=== PATIENT | male | born 1995 | race African-American/Black ===

== ENCOUNTER 2020-11-28 21:38 | Emergency (ER) | payer OTHER ==
[~2020-11-28] VITALS: Ht 188 cm; Wt 102.1 kg
--- NOTE | ~2020-11-28 | EMS ---
[place] [address] EMS Patient Care Report Name: ORLY THOMPSON Room #: REG KASI Sorto#: [id number] Admission: 11/28/20 Attend Phys: Discharge: Date of : [birth year] Report #: [id number] THIS REPORT FOR: //name// Report Transmitted: 11/28/2020 21:45 EMS Care Summary [place], [place]/[facility] Incident [id number] @ 11/28/2020 21:02 Incident Location [address] [place] [address] Patient ORLY THOMPSON Male, 25 Years 1995 Patient Address [address] [place] [address] Patient History None Reported, Patient Allergies No known allergies, Patient Medications None Reported, Chief Complaint Laceration to the knee and pinky Disposition Transported No Lights/[place] Dis[place] Reason Traumatic Injury Transported To [facility] Narrative Called for a traumatic injury. Upon arrival, P28 on the scene. Pt walked through a plate glass window accidentally. It was [place] [address] EMS Patient Care Report Name: ORLY THOMPSON Room #: REG M.R.#: [id number] Admission: 11/28/20 Attend Phys: Discharge: Date of : [birth year] Report #: [id number] laceration to his right knee and left pinky. At this time, all bleeding is controlled has been controlled by P28 via combat gauze, trauma dressing and secured with Kerlix. Pt assisted to the stair chair, moved to the EMS cot and loaded into the ambulance w/o incident. Vitals obtained. 18G IV SL and d-stick. Vitals repeated. En route: no changes. RR to the ER. Arrived: pt taken to triage, pt care & report to ER staff. Initial Vitals @21:26P: 98,R: 16,BP: 151/99,Pain: 4/10,GCS: 15,Glucose: 89,SpO2: 99,Revised Trauma: 12, @21:19P: 82,R: 18,BP: 152/99,Pain: 0/10,GCS: 15,CO: 0,SpO2: 100,Revised Trauma: 12, Assessments @21:13MENTAL:Person Oriented,Time Oriented,Place Oriented,Event Oriented,SKIN:HEENT:Head/Face: No Abnormalities,LUNG SOUNDS:ABDOMEN:PELVIS//GI:EXTREMITIES:Right Leg: LAC,Left Arm: LAC,Right Leg: LAC,Left Arm: Other,Right Leg: Other,Right Arm: No Abnormalities,Left Leg: No Abnormalities,PULSE:NEURO:No Abnormalities, Impression Injury of Thigh (Upper Leg) Procedures @21:24Saline Lock 8cc (18 ga) Site: Antecubital-LeftResponse: UnchangedFailed@21:18StretcherResponse: Unchanged@21:16StairchairResponse: Unchanged@PTABleeding ControlResponse: ImprovedSucceeded@PTABandagingResponse: ImprovedSucceeded@21:13ALS AssessmentResponse: UnchangedSucceeded@21:22Saline Lock cc (18 ga) Site: Antecubital-LeftResponse: UnchangedFailed Timeline MUSHROOM SPAWN MAKER,Bleeding Control,Response: ImprovedSucceeded, MUSHROOM SPAWN MAKER,Bandaging,Response: ImprovedSucceeded, 21:00,Call Received 21:00,Dispatch Notified 21:02,Dispatched 21:03,En Route 21:12,On Scene 21:13,At Patient 21:13,ALS Assessment,Response: UnchangedSucceeded, 21:16,Stairchair,Response: Unchanged 21:18,Stretcher,Response: Unchanged 21:19,BP: 152/99 M,PULSE: 82,RR: 18 R,SPO2: 100 Ox,ETCO2: ,BG: ,PAIN: 0,GCS: 15, 21:22,Saline Lock cc 18 ga Site: Antecubital-Left,Response: UnchangedFailed, 21:24,Saline Lock 8cc 18 ga Site: Antecubital-Left,Response: UnchangedFailed, [facility] [address] [place] [address] EMS Patient Care Report Name: ORLY THOMPSON Room #: CORTNEY Sorto#: [id number] Admission: 11/28/20 Attend Phys: Discharge: Date of : [birth year] Report #: [id number] 21:26,BP: 151/99 M,PULSE: 98,RR: 16 R,SPO2: 99 Ox,ETCO2: ,B,PAIN: 4,GCS: 15, 21:26,Depart Scene 21:32,At Destination 21:47,Call Closed Disclaimer v1.1 Copyright 2020 [employer] This EMS Care Summary contains data elements from the applicable legal record (which may be displayed differently). It is designed to provide pertinent information for the following purposes: continuity of care, clinical quality, and state data reporting. The complete legal record is available to ED staff and administrators of the receiving hospital in [employer] Patient Tracker. All data is provided "as is."
[2020-11-28] MEDS ORDERED: CEPHALEXIN500 MG PO (23:43)
[2020-11-28] MEDS ORDERED: HYDROCODON-ACE1 EAC7 PO (23:43)
[2020-11-29 01:29] VITALS: BP 125/89
== END 2020-11-29 00:35 | disposition home or self-care (01) ==
LOC: ER 21:38
DX: S61.217A Laceration without foreign body of left little finger without damage to nail, initial encounter (principal); S81.011A Laceration without foreign body, right knee, initial encounter; W25.XXXA Contact with sharp glass, initial encounter; Y93.89 Activity, other specified; Y92.89 Other specified places as the place of occurrence of the external cause; Y99.9 Unspecified external cause status

== ENCOUNTER 2020-12-06 12:09 | Emergency (ER) | payer OTHER ==
[~2020-12-06] VITALS: Ht 188 cm; Wt 103.4 kg
[~2020-12-06 12:09] MED LIST: CEPHALEXIN500 MG PO; HYDROCODON-ACE1 EAC7 PO
[2020-12-06 17:01] LABS: ABSOLUTE NEUTROPHILS 4.3 thou/uL (1.4-8.2); EOSINOPHILS 4.1 % (0.0-3.0); HEMATOCRIT 43.6 % (42.0-52.0); HEMOGLOBIN 14.1 gm/dL (14.0-18.0); LYMPHOCYTES 29.2 % (24.0-44.0); MCH 24.2 pg (26.0-34.0); MCHC 32.4 g/dL (28.0-37.0); MCV 74.7 fL (80.0-100.0); MONOCYTES 7.6 % (1.0-8.0); PLATELET COUNT 241 thou/uL (150-400); POLYS 58.1 % (36.0-66.0); RBC 5.84 mil/uL (4.50-6.00); RDW 15.1 % (10.5-14.5); WBC 7.3 thou/uL (4.0-11.0)
[2020-12-06 17:34] LABS: CALCIUM 9.3 mg/dL (8.5-10.1); CREATININE 1.2 mg/dL (0.7-1.3); POTASSIUM 4.3 mmol/L (3.5-5.1)
[2020-12-06 17:39] LABS: ALBUMIN 3.7 g/dL (3.4-5.0); TOTAL BILIRUBIN 0.5 mg/dL (0.2-1.0); TOTAL PROTEIN 8.7 g/dL (6.4-8.2)
[2020-12-06] MEDS ORDERED: NORCO 10-325 T1 EACH PO (17:53)
[2020-12-06] MEDS ORDERED: ELIQUIS5 M1 PO (17:53)
[2020-12-06 17:55] VITALS: BP 148/92
== END 2020-12-06 17:55 | disposition home or self-care (01) ==
LOC: ER 12:09
PROVIDERS: Physician Assistant
DX: I82.451 Acute embolism and thrombosis of right peroneal vein (principal); S81.011D Laceration without foreign body, right knee, subsequent encounter; X58.XXXD Exposure to other specified factors, subsequent encounter